=== PATIENT | male | born 1960 | race Hispanic/Latino ===

== ENCOUNTER 2018-02-23 15:16 | Emergency (ER) | payer MEDICAID ==
[2018-02-23 16:17] VITALS: BMI 20.5
[2018-02-23 16:25] VITALS: RESP 18; TEMP 98.3
--- NOTE | 2018-02-23 17:34 | ED PDOC ---
Arrival/HPI - General Chief Complaint: Needle Stick Time Seen by Provider: 02/23/18 16:25 Historian: Patient - History of Present Illness Narrative History of Present Illness (Text): 02/23/18 18:25 57-year-old male presents today with foreign body in the right forearm. Patient states he was attempting to inject heroin into his arm and the needle broke off into the forearm. Patient states he tried to use a exacto-knife to remove the needle without success. Patient denies fevers or chills. He denies numbness weakness or tingling in the extremity. pt is unsure of last tetanus. Patient denies fevers or chills. Patient states incident occurred 45 minutes prior to arrival. Patient states this has happened to him once before. 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 knee surgery - Anesthesia Hx Anesthesia: Yes Family/Social History - Physician Review Nursing Documentation Reviewed: Yes Family/Social History: Unknown Family HX Smoking Status: Current Some Days Smoker Hx Alcohol Use: No Hx Substance Use: Yes Substance used: heroin Allergies/Home Meds Allergies/Adverse Reactions: Allergies liver extract Adverse Reaction (Verified 02/23/18 16:17) VOMITING Home Medications: Home Meds Medication Instructions Recorded Confirmed Ibuprofen [Motrin Tab] 200 mg PO DAILY 02/23/18 02/23/18 Review of Systems - Review of Systems Constitutional: absent: Fatigue, Fevers Respiratory: absent: SOB, Cough Cardiovascular: absent: Chest Pain, Palpitations Gastrointestinal: absent: Abdominal Pain, Nausea, Vomiting Musculoskeletal: Arthralgias Skin: Other (FB in right arm) Neurological: absent: Headache, Dizziness Psychiatric: absent: Anxiety, Depression Physical Exam Vital Signs Reviewed: Yes Vital Signs Temp Pulse Resp BP Pulse Ox 02/23/18 15:17 98.3 F 70 18 136/84 95 Temperature: Afebrile Blood Pressure: Normal Pulse: Regular Respiratory Rate: Normal Appearance: Positive for: Well-Appearing, Non-Toxic, Comfortable Pain Distress: None Mental Status: Positive for: Alert and Oriented X 3 - Systems Exam Head: Present: Atraumatic Mouth: Present: Moist Mucous Membranes Neck: Present: Normal Range of Motion Respiratory/Chest: Present: Clear to Auscultation Cardiovascular: Present: Regular Rate and Rhythm Upper Extremity: Present: Normal ROM, NORMAL PULSES, Neurovascularly Intact, Capillary Refill < 2s, Other (right forearm; there is a dime sized area of abrasion located over the volar aspect of the right forearm; no palpable foreign body noted. no surrounding erythema. ). No: Tenderness, Swelling, Erythema, Deformity Neurological: Present: GCS=15, Speech Normal Skin: Present: Warm, Dry Psychiatric: Present: Alert, Oriented x 3 Medical Decision Making ED Course and Treatment: 57-year-old male with a history of IV drug use presents with foreign body in the right forearm. Patient with broken needle within skin. 02/23/18 17:25 dr. quesada discussed the case with dr. Loving; president and ceo to see patient. Patient was seen and evaluated by the medical surgical tech (dr. lo) at bedside. Unable to remove foreign body. She discussed case with dr. loving; pt is to f/u in the office for foreign body removal. pt started on bactrim and keflex po. tetanus updated. pt advised to f/u with surgeon within the next 2 days. Patient was advised to take antibiotics as prescribed. Patient was advised immediate return if signs of infection develop: High fevers, increasing pain, redness swelling, purulent discharge. Patient verbalizes understanding of discharge instructions and need for immediate followup. all aspects of this case were discussed the attending of record. Impression: Foreign body, skin of forearm Bactrim 1 tablet twice daily 7 days Keflex one capsule 4 times daily 7 days Keep wound clean and dry Apply bacitracin twice daily Follow-up with the surgeon within the next 2 days for foreign body removal Return immediately if signs of infection develop: High fevers, increasing pain, redness, swelling, purulent discharge - RAD Interpretation Radiology Orders: 02/23/18 16:30 FOREARM RIGHT [RAD] Stat Disposition/Present on Arrival - Present on Arrival Any Indicators Present on Arrival: No History of DVT/PE: No History of Uncontrolled Diabetes: No Urinary Catheter: No History of Decub. Ulcer: No History Surgical Site Infection Following: None - Disposition Have Diagnosis and Disposition been Completed?: Yes Diagnosis: Foreign body forearm Disposition: HOME/ ROUTINE Disposition Time: 17:28 Patient Plan: Discharge Patient Problems: Current Active Problems Problem Status Onset Foreign body forearm Acute Condition: GOOD Discharge Instructions (ExitCare): Foreign Body in Skin Additional Instructions: Bactrim 1 tablet twice daily 7 days Keflex one capsule 4 times daily 7 days Keep wound clean and dry Apply bacitracin twice daily Follow-up with the surgeon within the next 2 days for foreign body removal Return immediately if signs of infection develop: High fevers, increasing pain, redness, swelling, purulent discharge Prescriptions: Cephalexin [Keflex] 500 mg PO QID #28 capsule Sulfamethoxazole/Trimethoprim [Bactrim DS 800 mg-160 mg] 1 tab PO BID #14 tab Referrals: Charlie Loving MD [Medical Doctor] - Follow up with primary [facility] [Outside] - Follow up with primary Shamika Sahni MD [Staff Provider] - Follow up with primary Forms: [employer] (Romansh), WORK NOTE
[2018-02-23] MEDS ORDERED: TDAP Vaccine 0.5 mL Syr IM ONE (18:11)
[2018-02-23] MEDS ORDERED: Tmp-Smz 800 mg-160 mg DS Tab PO STA (18:11)
--- NOTE | 2018-02-23 18:41 | CP.PCM.CON ---
History of Present Illness - History of Present Illness History of Present Illness: General Surgery consult note for Dr. Ferrari Consulted for: needle in arm Patient is a 57M with no significant PMH who presented to the ED 30 min after breaking a needle tip off in his left forearm while trying to inject heroin. Patient states that the needle was new but that he used the same needle in 3 other locations before the final one in his forearm. He noticed right away that the tip broke off and attempted to dig it out with the box turner he used for work, but was unsuccessful. Pt denies any bleeding, erythema, fevers, chills, numbness or tingling in the extremities, or any focal weaknesses, chest pain, or SOB. Patient states that a similar episode happened last week in a different location and he was able to extract the needle tip himself with a knife. Patient also admits that he had a needle tip break off in his left arm several years ago that required surgical removal. Patient denies any history of hepatitis, HIV, or syphilis, stating he just got out of long-term and was tested 2 weeks ago. Patient states it has been 7 years since his last tetanus shot. 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 knee surgery - ANESTHESIA Hx Anesthesia: Yes Meds Home Medications: Home Medication List Medication Instructions Recorded Confirmed Type Cephalexin [Keflex] 500 mg PO QID #28 capsule 02/23/18 Rx Sulfamethoxazole/Trimethoprim 1 tab PO BID #14 tab 02/23/18 Rx [Bactrim DS 800 mg-160 mg] Allergies/Adverse Reactions: Allergies Allergy/AdvReac Type Severity Reaction Status Date / Time liver extract AdvReac VOMITING Verified 02/23/18 16:17 Physical Exam - Constitutional Appears: Non-toxic, No Acute Distress, Unkempt, Older Than Stated Age - Head Exam Head Exam: ATRAUMATIC, NORMOCEPHALIC - Eye Exam Eye Exam: Normal appearance. absent: Conjunctival injection, Scleral icterus - ENT Exam ENT Exam: Mucous Membranes Moist, Normal Oropharynx - Respiratory Exam Respiratory Exam: NORMAL BREATHING PATTERN. absent: Accessory Muscle Use, Respiratory Distress - Cardiovascular Exam Cardiovascular Exam: RRR - GI/Abdominal Exam GI & Abdominal Exam: absent: Distended - Extremities Exam Additional comments: both arms and hands with multiple needle lyles, left forearm with a jagged superficial wound approximately 0.5cm in diameter through the epidermis, no surrounding erythema, purulent drainage, or active bleeding. No visible or palpable needle - Neurological Exam Neurological exam: Alert, Normal Gait, Oriented x3 - Psychiatric Exam Psychiatric exam: Normal Affect, Normal Mood - Skin Skin Exam: Dry, Intact (except as noted above), Normal Color, Warm Results - Vital Signs Recent Vital Signs: Last Vital Signs Temp 98.3 F 02/23/18 18:10 Pulse 65 02/23/18 18:10 Resp 18 02/23/18 18:10 BP 137/80 02/23/18 18:10 Pulse Ox 97 02/23/18 18:10 - Imaging and Cardiology Xray left arm Status: Image reviewed by me Assessment & Plan - Assessment and Plan (Free Text) Assessment: 57M with a broken needle tip in his left forearm, heroin abuse Plan: Patient should be discharged after receiving a tetanus booster with PO antibiotics to follow up in Dr. Ferrari's office for extraction Patient was counseled to return to the ER for any signs of infection such as fevers or erythema or purulent drainage Patient was instructed to change the dressing daily, apply betadine to the wound daily, and to take all the antibiotics as instructed Patient expressed understanding with all of the above instructions Discussed with Dr. Vega Novak PGY2
[2018-02-23 20:00] VITALS: BP 138/75; PULSE 74; O2SAT 99
--- NOTE | 2018-02-24 12:15 | RAD ---
PROCEDURE: Radiographs of the Right Forearm HISTORY: needle broke off in forearm after shooting up COMPARISON: None available. TECHNIQUE: Frontal and lateral views obtained. FINDINGS: BONES: No fracture or destructive lesion. JOINT SPACES: Unremarkable. OTHER FINDINGS: There is a needle tip in the subcutaneous tissues of the ventral forearm IMPRESSION: There is a needle tip in the subcutaneous tissues of the ventral forearm
== END 2018-02-23 19:00 | disposition home or self-care (01) ==
LOC: ED 15:16
DX: S50.851A Superficial foreign body of right forearm, initial encounter (principal); X58.XXXA Exposure to other specified factors, initial encounter; Y92.9 Unspecified place or not applicable; Z23 Encounter for immunization